=== PATIENT | male | born 1975 | race Caucasian/White ===

== ENCOUNTER 2020-07-24 09:31 | Emergency (ER) | payer SELFPAY ==
[~2020-07-24] VITALS: Ht 170.2 cm; Wt 86.2 kg
[2020-07-24 09:39] VITALS: Ht 170.2 cm; Wt 86.2 kg
[2020-07-24] MEDS ORDERED: NARCAN4 MG (13:09)
[2020-07-24 15:20] VITALS: BP 140/91
== END 2020-07-24 15:20 | disposition home or self-care (01) ==
LOC: ED 09:31
DX: T40.1X1A Poisoning by heroin, accidental (unintentional), initial encounter (principal); I10 Essential (primary) hypertension; F17.210 Nicotine dependence, cigarettes, uncomplicated; Y92.89 Other specified places as the place of occurrence of the external cause